=== PATIENT | male | born 1990 ===

== ENCOUNTER 2016-11-20 22:24 | Emergency (ER) | payer OTHER ==
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
--- NOTE | 2016-11-20 23:29 | ED ORDER SUMMARY ---
..... Patient: ARCHANA IQBAL OrderSheet [facility] VisitID: [id number] [address] [place] [address] 26y, M Registration Date/Time: 11/20/2016 ORDER SHEET Weight: 108.8 kg (stated) Allergies: Amoxicillin, Penicillins GENERAL ORDERS: Shoulder 2V or more Right Urgent (22:48 11/20/2016 Jeannie TOMAS) (Ack 22:54 AMcQuoid ER Tech1) (23:12 Noris R.N.) Sling - arm (23:28 11/20/2016 Jeannie TOMAS) (Ack 23:35 CBradburn R.N.) (23:35 Noris R.N.) MEDICATION ORDERS: Toradol IM 60 mg (NOW) (22:49 11/20/2016 Jeannie TOMAS) (Ack 23:13 CBradburn R.N.) (23:21 CBradburn R.N.) Hydrocodone-APAP PO 5/325 mg (NOW, HIGH ALERT MEDICATION) (22:52 11/20/2016 Jeannie TOMAS) (Ack 23:13 DANNYradbebeto R.N.) (23:22 CBradbebeto R.N.) IV FLUIDS: ORDER SHEET NOTES: [Electronically signed by Madhuri Baeza R.N. (23:51 11/20/2016)] [Electronically signed by Kristal Horne MD (13:28 11/30/2016)] [Electronically locked/signed by Madhuri Baeza R.N. (23:51 11/20/2016)]
--- NOTE | 2016-11-20 23:29 | ED ORDER SUMMARY ---
..... Patient: ARCHANA IQBAL OrderSheet [facility] VisitID: [id number] [address] [place] [address] 26y, M Registration Date/Time: 11/20/2016 ORDER SHEET Weight: 108.8 kg (stated) Allergies: Amoxicillin, Penicillins GENERAL ORDERS: Shoulder 2V or more Right Urgent (22:48 11/20/2016 Jeannie TOMAS) (Ack 22:54 AMcQuoid ER Tech1) (23:12 Noris R.N.) Sling - arm (23:28 11/20/2016 Jeannie TOMAS) (Ack 23:35 CBradburn R.N.) (23:35 Noris R.N.) MEDICATION ORDERS: Toradol IM 60 mg (NOW) (22:49 11/20/2016 Jeannie TOMAS) (Ack 23:13 CBradburn R.N.) (23:21 CBradburn R.N.) Hydrocodone-APAP PO 5/325 mg (NOW, HIGH ALERT MEDICATION) (22:52 11/20/2016 Jeannie TOMAS) (Ack 23:13 DANNYradbebeto R.N.) (23:22 CBradbebeto R.N.) IV FLUIDS: ORDER SHEET NOTES: [Electronically signed by Madhuri Baeza R.N. (23:51 11/20/2016)] [Electronically signed by Kristal Horne MD (13:28 11/30/2016)] [Electronically locked/signed by Madhuri Baeza R.N. (23:51 11/20/2016)]
--- NOTE | 2016-11-20 23:42 | DIAGNOSTIC IMAGING REPORT ---
PROCEDURE: XR SHOULDER 2 OR MORE VW-RIGHT INDICATION: TRAUMA/INJURY TECHNIQUE: Three views of the right shoulder COMPARISON: None. FINDINGS: Normal mineralization. No fractures. Impaction deformity laterally above the greater tuberosity suggestive of a prior, healed Hill-Sachs fracture. No dislocation or separation. No suspicious soft tissue calcifications. The visible rib arcs and the underlying lung appear normal. IMPRESSION: 1. Intact right shoulder. 2. Healed Hill-Sachs deformity. Correlate with prior history of anterior dislocation.
--- NOTE | 2016-11-30 13:28 | ED MAR SUMMARY ---
..... Medication Administration Record [facility] [address] [place] [address] Patient: ARCHANA IQBAL Visit ID: [id number] 26y, M Weight: 108.8 kg Height/Length: 70 in BMI: 34.4 ALLERGIES: Amoxicillin, Penicillins Given 23:15 11/20/2016 Madhuri Baeza R.N. Medication Administered: HYDROCODONE-APAP [PO] (HYDROCODONE-ACETAMINOPHEN), Dose: 1 tab 5/325 mg Tablets PO. Medication Ordered: Hydrocodone-APAP PO 5/325 mg (NOW, HIGH ALERT MEDICATION). Given 23:16 11/20/2016 Madhuri Baeza R.N. Medication Administered: TORADOL [IM] (KETOROLAC TROMETHAMINE), Dose: 60 mg IM. Medication Ordered: Toradol IM 60 mg (NOW).
--- NOTE | 2016-11-30 13:28 | ED MAR SUMMARY ---
..... Medication Administration Record [facility] [address] [place] [address] Patient: ARCHANA IQBAL Visit ID: [id number] 26y, M Weight: 108.8 kg Height/Length: 70 in BMI: 34.4 ALLERGIES: Amoxicillin, Penicillins Given 23:15 11/20/2016 Madhuri Baeza R.N. Medication Administered: HYDROCODONE-APAP [PO] (HYDROCODONE-ACETAMINOPHEN), Dose: 1 tab 5/325 mg Tablets PO. Medication Ordered: Hydrocodone-APAP PO 5/325 mg (NOW, HIGH ALERT MEDICATION). Given 23:16 11/20/2016 Madhuri Baeza R.N. Medication Administered: TORADOL [IM] (KETOROLAC TROMETHAMINE), Dose: 60 mg IM. Medication Ordered: Toradol IM 60 mg (NOW).
--- NOTE | 2016-11-30 13:28 | ED DISCHARGE INSTRUCTIONS ---
Patient: ARCHANA IQBAL General Instructions [facility] VisitID: [id number] [address] [place] [address] 26y, M Registration Date/Time: 11/20/2016 Muscle strain of the right trapezius at the shoulder. INSTRUCTIONS Apply ice for 20 minutes three times a day as needed and until better. Don't apply ice directly to skin and don't use while asleep. Warnings: SEDATIVE MEDICATION: You were given sedative medication during your visit. Do not drive or operate dangerous machinery for 6 hours. GENERAL WARNINGS: Return or contact your physician immediately if your condition worsens or changes unexpectedly, if not improving as expected, or if other problems arise. Prescription Medications: Hydrocodone/APAP 5mg / 325mg: take 1 orally every 6 hours as needed for pain. Dispense ten (10). No refill. Ibuprofen 800 mg tablets: take 1 tablet orally every 8 hours as needed for pain. Dispense fifteen (15). No refill. Follow-up: Follow up with your doctor in three weeks if not better. Understanding of the discharge instructions verbalized by patient. ADDITIONAL INFORMATION Muscle Strain,Extremity A MUSCLE STRAIN is a stretching and tearing of muscle fibers. This causes pain, especially with motion of that muscle. There may also be some swelling and bruising. Home Care: 1) Keep the injured area raised to reduce pain and swelling. This is especially important during the first 48 hours. 2) Make an ice pack (ice cubes in a plastic bag, wrapped in a towel) and apply for 20 minutes every 1-2 hours the first day. You should continue with ice packs 3-4 times a day for the second and third days. Unless otherwise instructed, on the fourth day you may begin hot soaks or hot packs (small towel soaked in hot water) 3-4 times a day while you gently exercise the involved area. 3) You may use acetaminophen (Tylenol) or ibuprofen (Motrin, Advil) to control pain, unless another medicine was prescribed. [ NOTE : If you have chronic liver or kidney disease or ever had a stomach ulcer or GI bleeding, talk with your doctor before using these medicines.] 4) For LEG STRAINS: If CRUTCHES have been recommended, do not bear full weight on the injured leg until you can do so without pain. You may return to sports when you are able to hop and run on the injured leg without pain. Follow Up with your doctor or this facility if you are not improving within the next five days. Get Prompt Medical Attention if any of the following occur: -- Fingers or toes become swollen, cold, blue, numb or tingly -- Pain or swelling increases You have been given the following additional information: Muscle Strain, Extremity (Electronically signed by Kristal Horne MD 11/30/2016 13:28)
--- NOTE | 2016-11-30 13:28 | ED MED RECONCILIATION SUMMARY ---
Patient: ARCHANA IQBAL Medication Reconciliation Report [facility] VisitID: [id number] [address] [place] [address] 26y, M Registration Date/Time: 11/20/2016 Weight: 108.8 kg Height/Length: 70 in. BMI: 34.4 ALLERGIES: Amoxicillin, Penicillins The patient's Home Medications are listed below: NONE. The source(s) of the original Home Medication information: Not obtained. The following Medications were given to the patient in the Emergency Department: Toradol [IM] IM 60 mg, administered: 11/20/2016 11:16:00 PM Hydrocodone-APAP [PO] PO 1 tab, administered: 11/20/2016 11:15:00 PM The following Medications were prescribed to the patient: Hydrocodone/APAP 5mg / 325mg: take 1 orally every 6 hours as needed for pain. Dispense ten (10). No refill. -- Kristal Horne MD Ibuprofen 800 mg tablets: take 1 tablet orally every 8 hours as needed for pain. Dispense fifteen (15). No refill. -- Kristal Horne MD
--- NOTE | 2016-11-30 13:28 | ED MED RECONCILIATION SUMMARY ---
Patient: ARCHANA IQBAL Medication Reconciliation Report [facility] VisitID: [id number] [address] [place] [address] 26y, M Registration Date/Time: 11/20/2016 Weight: 108.8 kg Height/Length: 70 in. BMI: 34.4 ALLERGIES: Amoxicillin, Penicillins The patient's Home Medications are listed below: NONE. The source(s) of the original Home Medication information: Not obtained. The following Medications were given to the patient in the Emergency Department: Toradol [IM] IM 60 mg, administered: 11/20/2016 11:16:00 PM Hydrocodone-APAP [PO] PO 1 tab, administered: 11/20/2016 11:15:00 PM The following Medications were prescribed to the patient: Hydrocodone/APAP 5mg / 325mg: take 1 orally every 6 hours as needed for pain. Dispense ten (10). No refill. -- Kristal Horne MD Ibuprofen 800 mg tablets: take 1 tablet orally every 8 hours as needed for pain. Dispense fifteen (15). No refill. -- Kristal Horne MD
== END 2016-11-20 23:46 | disposition home or self-care (01) ==
LOC: ED SRH 22:24
DX: S46.811A Strain of other muscles, fascia and tendons at shoulder and upper arm level, right arm, initial encounter (principal); V58.6XXA Passenger in pick-up truck or van injured in noncollision transport accident in traffic accident, initial encounter; Y93.89 Activity, other specified; Y92.410 Unspecified street and highway as the place of occurrence of the external cause; Y99.8 Other external cause status; Z88.0 Allergy status to penicillin